=== PATIENT | female | born 1960 | race African-American/Black ===

== ENCOUNTER 2016-06-14 17:24 | Emergency (ER) | payer BC ==
[2016-06-14 16:23] LABS: BASOPHILS 0 %; EOSINOPHILS 1.1 %; EOSINOPHILS ABSOLUTE 0.05 10/3/uL (0.0-0.53); ER CBC TAT 0 Hrs 03 Mins; HEMOGLOBIN 14.4 g/dL (12.0-16.0); IMMATURE GRANULOCYTES 0.2 %; IMMATURE GRANULOCYTES ABSOLUTE 0.01 10/3/uL (0.0-0.11); LYMPHOCYTES 23.8 %; MEAN PLATELET VOLUME 9.6 fL (9.2-13.0); MONOCYTES 6.3 %; MONOCYTES ABSOLUTE 0.29 10/3/uL (0.21-1.20); NEUTROPHILS 68.6 %; NEUTROPHILS ABSOLUTE 3.18 10/3/uL (2.02-8.40); PLATELET COUNT 248 10/3/uL (150-400); WHITE BLOOD CELLS 4.6 10/3/uL (4.5-10.5)
[2016-06-14 16:24] LABS: HEMATOCRIT 43.8 % (36.0-48.0); MANUAL DIFF NO %; MEAN CORPUS HGB CONC 32.9 g/dL (32.0-36.0); MEAN CORPUSCULAR HEMOGLOB 31.2 pg (26.0-34.0); MEAN CORPUSCULAR VOLUME 94.8 fL (80-100); RED CELL COUNT 4.62 10/6/uL (4.0-5.6)
[2016-06-14 16:34] LABS: BUN (BLOOD UREA NITROGEN) 14 MG/DL (6-23); CALCIUM, SERUM 8.4 MG/DL (8.5-10.4); CHLORIDE, SERUM 102 MMOL/L (96-112); CO2 (CARBON DIOXIDE) 28 MMOL/L (24-34); CREATININE 1.16 MG/DL (0.55-1.02); GFR AFRICAN AMERICAN 62 ML/MIN (>=60); GFR NON AFRICAN AMERICAN 53 ML/MIN (>=60); GLUCOSE, SERUM 114 MG/DL (60-99); POTASSIUM, SERUM 3.3 MMOL/L (3.5-5.3); SODIUM, SERUM 137 MMOL/L (135-148)
[2016-06-14 16:36] LABS: INFLUENZA A SCREEN NEGATIVE (NEGATIVE); INFLUENZA B SCREEN NEGATIVE (NEGATIVE)
[~2016-06-14 17:24] MED LIST: AMIT100 PO; AZOR1 TA2 PO; CHANTIX0.5 PO; COREG12 PO; LORT7 PO; MIRALAXPKT PO; PCET PO; VICODIN ES1 TAB PO; X5 PO
[2016-08-02] MEDS ORDERED: NORCO1 TA2 PO (14:53)
[2016-08-02] MEDS ORDERED: ANOROELLIPTA INH (14:54)
== END 2016-06-14 17:30 | disposition home or self-care (01) ==
LOC: ER 17:24
PROVIDERS: Nurse Practitioner Acute Care
DX: B34.9 Viral infection, unspecified (principal); E87.6 Hypokalemia; J44.9 Chronic obstructive pulmonary disease, unspecified; I10 Essential (primary) hypertension; Z88.0 Allergy status to penicillin; Z91.013 Allergy to seafood; Z91.040 Latex allergy status; Z79.899 Other long term (current) drug therapy
CPT/HCPCS: 71020; 80048; 85025; 87804; 94640; 99284

== ENCOUNTER 2016-08-12 09:03 | Day surgery (SDC) | payer BC ==
--- NOTE | ~2016-08-12 | EGD ---
EGD REPORT [facility] [address] [address] NAME: KELSIE RAMÍREZ : [birth year] STATUS : [facility] [place] PAT#: [id number] AGE: 56 ADM/REG DATE : 08/12/16 MR#: [id number] REPORT SERV DATE: 08/12/16 DICTATED BY: GAURI BLANC DATE: 08/12/16 REPORT STATUS : Draft TRANSCRIBED BY: [employer] DATE: 08/12/16 [facility] Patient Name: Kelsie Ramírez Date of : 1960 Attending MD: GAURI BLANC MD Procedure Date No Time: 08/12/2016 Procedure: Colonoscopy Indications: Screening for colorectal malignant neoplasm, This is the patient's first colonoscopy Referring MD: AGUSTIN FERRARO Medicines: See the Anesthesia note for documentation of the administered medications Complications: No immediate complications. Procedure: Pre-Anesthesia Assessment: - ASA Grade Assessment: III - A patient with severe systemic disease. After I obtained informed consent, the scope was passed under direct vision. Throughout the procedure, the patient's blood pressure, pulse, and oxygen saturations were monitored continuously. The [id number] was introduced through the anus and advanced to the terminal ileum, with identification of the appendiceal orifice and IC valve. The colonoscopy was performed without difficulty. The patient tolerated the procedure well. The quality of the bowel preparation was adequate. Findings: The perianal and digital rectal examinations were normal. A single small angioectasia was found in the ascending colon. Internal hemorrhoids were found during retroflexion and were medium-sized. Two sessile polyps were found in the recto-sigmoid colon. The polyps were small in size. These polyps were removed with a cold biopsy forceps. Resection and retrieval were complete. Impression: - A single colonic angioectasia. - Internal hemorrhoids. - Two small polyps at the recto-sigmoid colon. Resected and retrieved. Recommendation: - Patient has a contact number available for emergencies. The signs and symptoms of potential delayed complications were discussed with the patient. Return to normal activities tomorrow. Written discharge instructions were provided to the patient. EGD REPORT [address] [address] NAME: KELSIE RAMÍREZ : [birth year] STATUS : [facility] [place] PAT#: [id number] AGE: 56 ADM/REG DATE : 08/12/16 MR#: [id number] REPORT SERV DATE: 08/12/16 DICTATED BY: GAURI BLANC DATE: 08/12/16 REPORT STATUS : Draft TRANSCRIBED BY: [employer] DATE: 08/12/16 - Regular diet. - Continue present medications. - Repeat colonoscopy for surveillance based on pathology results. - FOR YOUR BIOPSY RESULTS: Please go to [email or web address] and register to receive your results via the portal. Your biopsy results will be posted there in about 7 to 10 days. IF you do not see result in 10 days, call office. Procedure Code(s): --- Professional --- 26905, Colonoscopy, flexible, proximal to splenic flexure; with biopsy, single or multiple Diagnosis Code(s): --- Professional --- K55.20, Angiodysplasia of colon without hemorrhage K64.8, Other hemorrhoids D12.7, Benign neoplasm of rectosigmoid junction Z12.11, Encounter for screening for malignant neoplasm of colon CPT copyright 2013 [employer]. All rights reserved. The codes documented in this report are preliminary and upon bridal gown fitter review may be revised to meet current compliance requirements. Gauri Blanc MD GAURI BLANC MD 08/12/2016 11:25 AM This report has been signed electronically. Number of Addenda: 0 Note Initiated On: 08/12/2016 10:59 AM Scope Withdrawal Time 0 hours 10 minutes 39 seconds [id number] [id number]
[~2016-08-12 09:03] MED LIST changes: +ANOROELLIPTA INH; +NORCO1 TA2 PO
== END 2016-08-12 23:59 | disposition home or self-care (01) ==
LOC: DMU 09:03
PROVIDERS: Internal Medicine Gastroenterology
PROC: 0DBN8ZZ Excision of Sigmoid Colon, Via Natural or Artificial Opening Endoscopic (ICD-10-PCS; principal; 2016-08-12 10:30)
DX: Z12.11 Encounter for screening for malignant neoplasm of colon (principal); K63.5 Polyp of colon; K55.20 Angiodysplasia of colon without hemorrhage; K64.8 Other hemorrhoids; Z87.891 Personal history of nicotine dependence; D86.9 Sarcoidosis, unspecified; J44.9 Chronic obstructive pulmonary disease, unspecified; G47.33 Obstructive sleep apnea (adult) (pediatric); I10 Essential (primary) hypertension; F41.9 Anxiety disorder, unspecified; G43.809 Other migraine, not intractable, without status migrainosus; Z79.899 Other long term (current) drug therapy; Z88.0 Allergy status to penicillin; Z91.013 Allergy to seafood; Z79.891 Long term (current) use of opiate analgesic; Z91.040 Latex allergy status
CPT/HCPCS: 88305